=== PATIENT | female | born 1945 | race Caucasian/White ===

== ENCOUNTER 2021-10-06 13:12 | Emergency (ER) | payer MEDICARE, OTHER ==
[2021-10-06] MEDS ORDERED: Metoclopramide 10 MG/2 ML SDV IVPUSH ONE (14:37)
[2021-10-06] MEDS ORDERED: HYDROmorphone 0.5 MG/0.5 ML Syringe IVPUSH ONE (14:37)
[2021-10-06] MEDS ORDERED: Sodium Chloride 0.9% 10 ML Syringe FLUSH PRN (14:37)
[2021-10-06] MEDS ORDERED: Dicyclomine 10 MG Cap PO ONE (14:37)
--- NOTE | 2021-10-06 14:45 | EDM.PDOC ---
ED HPI GENERAL MEDICAL PROBLEM - General Chief Complaint: General Stated Complaint: WEAK CANT EAT Time Seen by Provider: 10/06/21 14:22 Source of Information: Reports: Patient History Limitations: Reports: No Limitations, Other (ED vital signs reveal a temp of 97.5, pulse of 109, respiratory rate of 14, blood pressure 164/87, pulse ox 98% on room air.) - History of Present Illness INITIAL COMMENTS - FREE TEXT/NARRATIVE: 76-year-old female presents the emergency department today with complaints of inability to eat. Patient states she has had issues for quite some time and was seen by her primary care provider at the clinic, Dr. Smith. States that a CT scan was completed and was told that she had her hernia and she is to follow-up with Dr. Renae in early October for evaluation of this. Patient states 1 to [address] scan she did develop a rash over her entire body. She was told by her primary care provider to take Benadryl and likely the cause was due to the CT scan dye. Patient states she has had no appetite and has only been drinking fluids. She states she has attempted to drink Ensure supplements however she states they cause her to gag and vomit. She states she did develop chills as well last evening. She has had both of her Covid vaccines as well as her booster shot most recently in August 2021. - Related Data Allergies Allergy/AdvReac Type Severity Reaction Status Date / Time aspirin Allergy Nose Bleeds Verified 10/06/21 14:26 naproxen [From Aleve] Allergy Cannot Verified 10/06/21 14:26 Remember Home Meds: Home Meds Latanoprost/Pf [Latanoprost 0.005% Eye Drop] 1 drop EYEBOTH BEDTIME 10/06/21 [History] Losartan [Cozaar] 50 mg PO DAILY 10/06/21 [History] Metoclopramide HCl [Reglan] 5 mg PO TIDAC #30 tablet 10/06/21 [Rx] Multivit with Iron,Minerals [Complete Senior] 2 tab PO DAILY 10/06/21 [History] Mupirocin Oint [Bactroban Oint] 1 applic TOP TID PRN 10/06/21 [History] Brea-3S/DHA/Epa/Fish Oil [Brea-3 Fish Oil 1,000 mg Sfgl] 1,000 mg PO DAILY 10/06/21 [History] atorvaSTATin [Lipitor] 5 mg PO DAILY 10/06/21 [History] metFORMIN HCl [Metformin HCl] 1,000 mg PO DAILY 10/06/21 [History] metFORMIN HCl [Metformin HCl] 500 mg PO QPM 10/06/21 [History] timoloL maleate [Timoptic 0.5% Ophth Soln] 1 drop EYEBOTH BID 10/06/21 [History] Past Medical History HEENT History: Reports: Cataract, Glaucoma Cardiovascular History: Reports: Hypertension Gastrointestinal History: Reports: Other (See Below) Other Gastrointestinal History: recently found hernia 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 ED EXAM, GENERAL - Physical Exam Exam: See Below Exam Limited By: No Limitations General Appearance: Alert, WD/WN, Anxious, Mild Distress (Patient is slightly anxious) Ears: Normal External Exam, Hearing Grossly Normal Nose: Normal Inspection Throat/Mouth: Normal Inspection, Normal Lips, Normal Voice, No Airway Compromise Head: Atraumatic Neck: Normal Inspection, Supple Respiratory/Chest: No Respiratory Distress, Lungs Clear, Normal Breath Sounds, No Accessory Muscle Use, Chest Non-Tender Cardiovascular: Normal Peripheral Pulses, Regular Rate, Rhythm, No Edema, No Murmur Peripheral Pulses: 2+: Radial (L), Radial (R) GI/Abdominal: Normal Bowel Sounds, Soft, Non-Tender, No Distention (Female) Exam: Deferred Rectal (Female) Exam: Deferred Back Exam: Normal Inspection Extremities: Normal Inspection Neurological: Alert, Oriented, Normal Cognition Psychiatric: Anxious Skin Exam: Warm, Dry, Intact, Normal Color, No Rash Lymphatic: No Adenopathy Course - Vital Signs Text/Narrative:: As stated above, patient presents with inability to eat and decreased appetite. Was recently evaluated and does have a hiatal hernia which needs further evaluation with Dr. Renae at [facility] in [place]. Patient states she is feeling weak and has been unable to eat for the past few days. Will obtain lab studies to include a CBC, CMP, magnesium as well as a chest x-ray and Covid swab. Discussed the case with Dr. Bowens who recommends that I treat her with Dilaudid, Bentyl and Reglan. Last Recorded V/S: Last Vital Signs Temp 97.5 F 10/06/21 14:21 Pulse 109 H 10/06/21 14:21 Resp 14 10/06/21 14:21 BP 164/87 H 10/06/21 14:21 Pulse Ox 98 10/06/21 14:21 - Orders/Labs/Meds Orders: Active Orders 24 hr Category Date Time Status CORONAVIRUS COVID-19 ANDRE [MOLEC] Stat Lab 10/06/21 14:40 Ordered Sodium Chloride 0.9% [Saline Flush] Med 10/06/21 14:37 Active 10 ml FLUSH ASDIRECTED PRN Saline Lock Insert [OM.PC] Stat Oth 10/06/21 14:37 Ordered Medication Orders Sodium Chloride (Sodium Chloride 0.9% 10 Ml Syringe) 10 ml FLUSH ASDIRECTED PRN PRN Reason: Keep Vein Open Last Admin: 10/06/21 15:42 Dose: 10 ml Documented by: HERMMIC Labs: Laboratory Tests 10/06/21 10/06/21 Range/Units 15:39 15:39 WBC 8.18 (3.98-10.04) K/mm3 RBC 4.59 (3.98-5.22) M/mm3 Hgb 14.2 (11.2-15.7) gm/dl Hct 41.4 (34.1-44.9) % MCV 90.2 (79.4-94.8) fl MCH 30.9 (25.6-32.2) pg MCHC 34.3 (32.2-35.5) g/dl RDW Std Deviation 41.5 (36.4-46.3) fL Plt Count 303 (182-369) K/mm3 MPV 9.8 (9.4-12.3) fl Neut % (Auto) 68.7 (34.0-71.1) % Lymph % (Auto) 23.3 (19.3-51.7) % [place] % (Auto) 5.5 (4.7-12.5) % Eos % (Auto) 2.3 (0.7-5.8) Baso % (Auto) 0.1 (0.1-1.2) % Neut # (Auto) 5.61 (1.56-6.13) K/mm3 Lymph # (Auto) 1.91 (1.18-3.74) K/mm3 [place] # (Auto) 0.45 H (0.24-0.36) K/mm3 Eos # (Auto) 0.19 (0.04-0.36) K/mm3 Baso # (Auto) 0.01 (0.01-0.08) K/mm3 Sodium 132 L (136-145) mEq/L Potassium 3.9 (3.5-5.1) mEq/L Chloride 97 L (98-107) mEq/L Carbon Dioxide 22 (21-32) mEq/L Anion Gap 16.9 H (5-15) BUN 9 (7-18) mg/dL Creatinine 1.1 H (0.55-1.02) mg/dL Est Cr Clr Drug Dosing 33.34 mL/min Estimated GFR (MDRD) 48 (>60) mL/min BUN/Creatinine Ratio 8.2 L (14-18) Glucose 126 H (70-99) mg/dL Calcium 8.8 (8.5-10.1) mg/dL Magnesium 1.6 L (1.8-2.4) mg/dL Total Bilirubin 0.7 (0.2-1.0) mg/dL AST 26 (15-37) U/L ALT 18 (14-59) U/L Alkaline Phosphatase 45 L (46-116) U/L Total Protein 6.2 L (6.4-8.2) g/dl Albumin 3.2 L (3.4-5.0) g/dl Globulin 3.0 gm/dL Albumin/Globulin Ratio 1.1 (1-2) Meds: Medications Generic Name Dose Route Start Last Admin Trade Name Freq PRN Reason Stop Dose Admin Sodium Chloride 10 ml 10/06/21 14:37 10/06/21 15:42 Sodium Chloride 0.9% 10 Ml Syringe FLUSH 10 ml ASDIRECTED PRN Administration Keep Vein Open Discontinued Medications Generic Name Dose Route Start Last Admin Trade Name Freq PRN Reason Stop Dose Admin Dicyclomine HCl 10 mg 10/06/21 14:37 10/06/21 15:42 Dicyclomine 10 Mg Cap PO 10/06/21 14:38 10 mg ONETIME ONE Administration Hydromorphone HCl 0.5 mg 10/06/21 14:37 10/06/21 15:41 Hydromorphone 0.5 Mg/0.5 Ml Syringe IVPUSH 10/06/21 14:38 0.5 mg ONETIME ONE Administration Metoclopramide HCl 5 mg 10/06/21 14:37 10/06/21 15:41 Metoclopramide 10 Mg/2 Ml Sdv IVPUSH 10/06/21 14:38 5 mg ONETIME ONE Administration - Re-Assessments/Exams Free Text/Narrative Re-Assessment/Exam: 10/06/21 15:45 Radiologist impression portable view of the chest: Heart size is slightly enlarged. Large hiatal hernia is noted. Lungs are clear with no acute parenchymal change. Bony structures show nothing acute. Impression: 1. Slight cardiomegaly and large hiatal hernia. 10/06/21 16:48 Hematology is essentially unremarkable, chemistry reveals a sodium of 132, potassium 3.9, chloride 97, anion gap 16.9, BUN 9, creatinine 1.1, GFR 48, glucose 126, magnesium 1.6 Discussed the case with Dr. Bowens and he recommends treating the patient with Reglan 5 mg p.o. 3 times daily before meals. Patient will need to remain on a clear liquid diet until she can follow-up with Dr. Renae. 10/06/21 16:54 Discussed the patient's lab results and x-ray results. Discussed the plan of medicating 3 times daily before meals with Reglan and she is agreeable to this. She will remain on a liquid diet until she follows up with Dr. Renae. Departure - Departure Time of Disposition: 16:54 Disposition: Home, Self-Care 01 Condition: Good Clinical Impression: Hiatal hernia - Discharge Information Prescriptions: Metoclopramide HCl [Reglan] 5 mg PO TIDAC #30 tablet Instructions: Hiatal Hernia Referrals: Nely Smith MD [Primary Care Provider] - Forms: ED Department Discharge Additional Instructions: You were seen in the emergency department today with nausea and vomiting due to a hiatal hernia. X-ray and lab studies were completed. As discussed, x-ray did show a very large hiatal hernia which is likely the cause of your nausea and vomiting and decreased appetite. Lab studies were essentially unremarkable. While you are in the emergency department you did receive medications for your nausea and hernia to relax the area and this did seem to help. I have electronically sent a prescription to [facility] in [place] for a medication called Reglan. I want you to take 1 tab 30 minutes before meals 3 times daily to help with the nausea. Recommend you stick to a liquid diet until you follow- up with Dr. Renae. Also recommend protein supplements such as Ensure. Should your condition worsen or change, do not hesitate returning to the emergency depa rtment. Follow-up with your primary care provider as needed. Sepsis Event Note (ED) - Evaluation Sepsis Screening Result: No Definite Risk - Focused Exam Vital Signs: Vital Signs Temp Pulse Resp BP Pulse Ox 10/06/21 14:21 97.5 F 109 H 14 164/87 H 98 - My Orders Last 24 Hours: My Active Orders 10/06/21 14:37 Sodium Chloride 0.9% [Saline Flush] 10 ml FLUSH ASDIRECTED PRN Saline Lock Insert [OM.PC] Stat 10/06/21 14:40 CORONAVIRUS COVID-19 ANDRE [MOLEC] Stat - Assessment/Plan Last 24 Hours: My Active Orders 10/06/21 14:37 Sodium Chloride 0.9% [Saline Flush] 10 ml FLUSH ASDIRECTED PRN Saline Lock Insert [OM.PC] Stat 10/06/21 14:40 CORONAVIRUS COVID-19 ANDRE [MOLEC] Stat
--- NOTE | 2021-10-06 15:18 | CR ---
Chest: Portable view of the chest was obtained. Comparison: No prior chest imaging is available. Heart size is slightly enlarged. Large hiatal hernia is noted. Lungs are clear with no acute parenchymal change. Bony structures show nothing acute. Impression: 1. Slight cardiomegaly and large hiatal hernia. Diagnostic code #2
== END 2021-10-06 17:20 | disposition home or self-care (01) ==
LOC: JD.ED 13:12
DX: K44.9 Diaphragmatic hernia without obstruction or gangrene (principal); I10 Essential (primary) hypertension; E11.9 Type 2 diabetes mellitus without complications; Z79.84 Long term (current) use of oral hypoglycemic drugs; Z88.5 Allergy status to narcotic agent; Z88.8 Allergy status to other drugs, medicaments and biological substances; Z79.899 Other long term (current) drug therapy
CPT/HCPCS: 36415; 71045; 80053; 83735; 85025; 96374; 96375; 99284; A9270; J1170; J2765

== ENCOUNTER → 2023-10-20 | Day surgery (SDC) | payer MEDICARE, BC ==
[2023-10-20] MEDS: Brimonidine 0.2% Ophth Soln 5 ML Bottle EYELF SCH ×2 (12:12→12:59)
[2023-10-20] MEDS: Phenylephrine 2.5% Ophth Soln 2 ML Bot EYELF SCH ×3 (12:15→12:35)
[2023-10-20] MEDS: Tropicamide 1% Ophth Soln 3 ML Bottle EYELF SCH ×3 (12:20→12:40)
== END ==
LOC: JD.SDS 11:30
PROVIDERS: ATTEND Ophthalmology
DX: H26.492 Other secondary cataract, left eye (principal); H40.1113 Primary open-angle glaucoma, right eye, severe stage; H40.1122 Primary open-angle glaucoma, left eye, moderate stage; H16.223 Keratoconjunctivitis sicca, not specified as Sjogren's, bilateral; H02.834 Dermatochalasis of left upper eyelid; H02.831 Dermatochalasis of right upper eyelid; K44.9 Diaphragmatic hernia without obstruction or gangrene; I10 Essential (primary) hypertension; E11.36 Type 2 diabetes mellitus with diabetic cataract; E78.00 Pure hypercholesterolemia, unspecified; Z79.899 Other long term (current) drug therapy; Z79.84 Long term (current) use of oral hypoglycemic drugs; Z88.8 Allergy status to other drugs, medicaments and biological substances; Z88.6 Allergy status to analgesic agent
CPT/HCPCS: 66821; A9270

== ENCOUNTER 2024-01-16 08:22 | Emergency (ER) | payer MEDICARE, BC ==
[2024-01-16] MEDS: Ondansetron 4 MG/2 ML SDV IVPUSH ONE (09:14)
[2024-01-16] MEDS: Sodium Chloride 0.9% 1,000 ML IV SCH (09:14)
[2024-01-16] MEDS: Sodium Chloride 0.9% 10 ML Syringe FLUSH PRN (09:15)
[2024-01-16 09:26] LABS: BASOPHILS PERCENT AUTO 0.4 % (0.0-1.0); EOSINOPHILS PERCENT AUTO 0.7 % (0.0-6.0); HEMOGLOBIN 12.8 gm/dl (12.0-16.0); IMMATURE GRAN ABSOLUTE AUTO 0.01 K/mm3 (0.00-0.05); IMMATURE GRAN PERCENT AUTO 0.2 % (0.0-0.4); LYMPHOCYTES ABSOLUTE AUTO 1.3 K/mm3 (1.0-4.8); LYMPHOCYTES PERCENT AUTO 23.8 % (24.0-44.0); MEAN CORPUSCULAR HEMOGLOBIN 31.2 pg (28.0-32.0); MEAN CORPUSCULAR HGB CONC 35.6 g/dl (32.0-36.0); MEAN CORPUSCULAR VOLUME 87.8 fl (83.0-99.0); MEAN PLATELET VOLUME 9.4 fl (9.4-12.3); MONOCYTES ABSOLUTE AUTO 0.2 K/mm3 (0.0-0.8); MONOCYTES PERCENT AUTO 4.1 % (0.0-8.0); NEUTROPHILS PERCENT AUTO 70.8 % (41.0-71.0); PLATELET COUNT,PLT 284 K/mm3 (150-400); WHITE BLOOD CELL COUNT,WBC 5.59 K/mm3 (3.9-11.3)
[2024-01-16 09:52] LABS: A/G RATIO 0.9 (1-2); ALANINE AMINOTRANSFERASE,ALT 19 U/L (14-59); ALBUMIN 3.8 g/dl (3.4-5.0); ALKALINE PHOSPHATASE 84 U/L (46-116); ANION GAP 15.8 (5-15); ASPARTATE AMNIOTRANSFERASE,AST 19 U/L (15-37); BLOOD UREA NITROGEN,BUN 5 mg/dL (7-18); BUN/CREATININE RATIO 4.5 (14-18); C-REACTIVE PROTEIN 0.13 mg/dL (<0.30); CALCIUM 9.2 mg/dL (8.5-10.1); CARBON DIOXIDE,CO2 24 mEq/L (21-32); CHLORIDE,CL 94 mEq/L (98-107); CREATININE 1.1 mg/dL (0.55-1.02); ESTIMATED GFR 52 mL/min (>60); GLUCOSE RANDOM 184 mg/dL (70-99); LIPASE 17 U/L (16-77); MAGNESIUM 1.7 mg/dL (1.8-2.4); POTASSIUM,K 3.8 mEq/L (3.5-5.1); PROTEIN TOTAL,TP 7.9 g/dl (6.4-8.2); SODIUM,NA 130 mEq/L (136-145)
[2024-01-16 12:16] LABS: APPEARANCE,URINE CLEAR (Clear); BILIRUBIN,URINE NEGATIVE (Negative); COLOR,URINE YELLOW (Yellow); GLUCOSE,URINE NEGATIVE (Negative); KETONES,URINE 1+ (Negative); LEUKOCYTE ESTERASE,URINE TRACE (Negative); NITRITE,URINE NEGATIVE (Negative); OCCULT BLOOD,URINE NEGATIVE (Negative); PH,URINE 6.5 (5.0-8.0); PROTEIN,URINE NEGATIVE (Negative); UROBILINOGEN,URINE 0.2 (0.2-1.0)
[2024-01-16 12:29] LABS: BACTERIA,URINE FEW /hpf (FEW); EPITHELIAL CELLS,URINE 0-5 /hpf (0-5); RBC,URINE 0-5 /hpf (0-5)
[2024-01-16 12:30] LABS: MUCUS,URINE RARE /hpf (FEW)
[2024-01-16] MEDS ORDERED: cefTRIAXone 1 GM in Sodium Chloride 0.9% 100 ML IV ONE (12:40)
== END 2024-01-16 13:11 | disposition home or self-care (01) ==
LOC: JD.ED 08:22
DX: N39.0 Urinary tract infection, site not specified (principal); I10 Essential (primary) hypertension; E11.9 Type 2 diabetes mellitus without complications; Z88.8 Allergy status to other drugs, medicaments and biological substances; Z79.84 Long term (current) use of oral hypoglycemic drugs; Z79.899 Other long term (current) drug therapy; Z86.16 Personal history of COVID-19
CPT/HCPCS: 36415; 80053; 81001; 83690; 83735; 85025; 86140; 96361; 96374; 99284; J2405; J3490; J7030

== ENCOUNTER 2025-04-02 16:28 | Emergency (ER) | payer MEDICARE, BC ==
[2025-04-02] MEDS: Sodium Chloride 0.9% 1,000 ML IV ONE (16:58)
[2025-04-02] MEDS: Ondansetron 4 MG/2 ML SDV IVPUSH ONE (16:58)
[2025-04-02 18:18] LABS: BASOPHILS PERCENT AUTO 0.2 % (0.0-1.0); EOSINOPHILS ABSOLUTE AUTO 0.1 K/mm3 (0.0-0.4); EOSINOPHILS PERCENT AUTO 0.6 % (0.0-6.0); HEMATOCRIT 36.3 % (37.0-47.0); HEMOGLOBIN 12.1 gm/dl (12.0-16.0); IMMATURE GRAN ABSOLUTE AUTO 0.03 K/mm3 (0.00-0.05); IMMATURE GRAN PERCENT AUTO 0.2 % (0.0-0.4); LYMPHOCYTES ABSOLUTE AUTO 2.1 K/mm3 (1.0-4.8); LYMPHOCYTES PERCENT AUTO 17.2 % (24.0-44.0); MEAN CORPUSCULAR HEMOGLOBIN 31.1 pg (28.0-32.0); MEAN CORPUSCULAR HGB CONC 33.3 g/dl (32.0-36.0); MEAN CORPUSCULAR VOLUME 93.3 fl (83.0-99.0); MEAN PLATELET VOLUME 10.3 fl (9.4-12.3); MONOCYTES ABSOLUTE AUTO 0.6 K/mm3 (0.0-0.8); MONOCYTES PERCENT AUTO 4.8 % (0.0-8.0); NEUTROPHILS ABSOLUTE AUTO 9.6 K/mm3 (1.8-7.7); PLATELET COUNT,PLT 233 K/mm3 (150-400); RED BLOOD CELL COUNT 3.89 M/mm3 (4.10-5.30); WHITE BLOOD CELL COUNT,WBC 12.41 K/mm3 (3.9-11.3)
[2025-04-02 18:34] LABS: INR 1.03; PROTHROMBIN TIME 10.9 SECONDS (9.7-12.0)
[2025-04-02 18:40] LABS: ALBUMIN 3.8 g/dl (3.4-5.0); ANION GAP 13.6 (5-15); BILIRUBIN TOTAL 0.8 mg/dL (0.2-1.0); BUN/CREATININE RATIO 11.8 (14-18); CALCIUM 8.8 mg/dL (8.5-10.1); CREATININE 1.1 mg/dL (0.55-1.02); EST CRCL DRUG DOSING (CG) 29.79 mL/min; MAGNESIUM 1.4 mg/dL (1.8-2.4); POTASSIUM,K 4.6 mEq/L (3.5-5.1); PROTEIN TOTAL,TP 7.6 g/dl (6.4-8.2)
== END 2025-04-02 19:37 | disposition home or self-care (01) ==
LOC: JD.ED 16:28
DX: E86.9 Volume depletion, unspecified (principal); R55 Syncope and collapse; R19.7 Diarrhea, unspecified; I12.9 Hypertensive chronic kidney disease with stage 1 through stage 4 chronic kidney disease, or unspecified chronic kidney disease; N18.9 Chronic kidney disease, unspecified; E11.22 Type 2 diabetes mellitus with diabetic chronic kidney disease; Z86.16 Personal history of COVID-19; Z79.84 Long term (current) use of oral hypoglycemic drugs; Z79.899 Other long term (current) drug therapy; Z88.5 Allergy status to narcotic agent
CPT/HCPCS: 36415; 70450; 71045; 80053; 82550; 83690; 83735; 84484; 85025; 85610; 93005; 96361; 96374; 99285; J2405; J7030; 93010; 99283